=== PATIENT | female | born 1945 | race Caucasian/White ===

== ENCOUNTER 2021-06-15 14:03 | Inpatient (IN) ==
[2021-06-15] MEDS ORDERED: ONDANSETRON 4 MG/2 ML VIAL IV STA (15:11)
[2021-06-15] MEDS ORDERED: SODIUM CHLORIDE 0.9% 1,000 ML IV STA (15:11)
[2021-06-15 17:29] LABS: Basophils % 0.5 % (0.0-0.8); Eosinophils % 0.4 % (0.00-10.9); Hematocrit 35.4 VOL% (35.7-47.0); Hemoglobin 11.3 GM/DL (12.0-16.0); Immature Granulocytes % 0.4 %; Immature Granulocytes Absolute 0.03 #; Lymphocytes # 1.7 10*3/uL (1.4-4.0); Lymphocytes % 20.5 % (21.3-54.2); Mean Corpuscular HGB Conc 31.9 GM/DL (32-36); Mean Corpuscular Volume 88.1 FL (87-102); Monocytes % 8.2 % (1.7-12.7); Platelet Count 370 T/CUMM (130-400); Red Blood Count 4.02 MC/CUMM (3.8-5.5); White Blood Count 8.4 T/CUMM (4-12)
[2021-06-15 17:50] LABS: Albumin 2.7 G/DL (3.4-5.0); Osmolality,Calculated 276.5 MOS/KG (273-304); Potassium 2.7 MMOL/L (3.5-5.1); Total Protein 6.8 G/DL (6.4-8.2)
[2021-06-15] MEDS ORDERED: MAGNESIUM SULF RIDER 2 GM/50 ML PREMIX IV PRN (18:13)
[2021-06-15] MEDS ORDERED: MAGNESIUM SULF RIDER 4 GM/100 ML PREMIX IV PRN (18:13)
[2021-06-15] MEDS ORDERED: PIPERACILLIN/TAZOBACTAM 3,375 MG in SODIUM CHLORIDE 0.9% 100 ML IV STA (18:15)
[2021-06-15] MEDS ORDERED: GLUCAGON 1 MG VIAL IM PRN (18:47)
[2021-06-15] MEDS ORDERED: hydrALAZINE 20 MG/1 ML VIAL IV PRN (18:47)
[2021-06-15] MEDS ORDERED: DEXTROSE 10% 250 ML BAG IV PRN (18:57)
[2021-06-15] MEDS: POTASSIUM CHLORIDE RIDER 10 MEQ/100 ML PREMIX IV PRN ×4 (20:30→23:45)
[2021-06-15] MEDS: ALBUTEROL/IPRATROPIUM 3 ML NEB RESP TX SCH (20:46)
[2021-06-15] MEDS: traZODone 50 MG TABLET PO SCH (22:36)
[2021-06-15] MEDS: QUEtiapine 25 MG TABLET PO SCH (22:36)
[2021-06-16] MEDS: ALBUTEROL/IPRATROPIUM 3 ML NEB RESP TX SCH ×4 (00:09→19:10)
[2021-06-16 04:19] LABS: Basophils # 0.1 10*3/uL (0.0-0.2); Basophils % 0.7 % (0.0-0.8); Eosinophils % 0.4 % (0.00-10.9); Hemoglobin 10.8 GM/DL (12.0-16.0); Immature Granulocytes % 0.4 %; Immature Granulocytes Absolute 0.03 #; Lymphocytes # 1.4 10*3/uL (1.4-4.0); Mean Corpuscular HGB Conc 31.8 GM/DL (32-36); Mean Corpuscular Volume 89.5 FL (87-102); Mean Platelet Volume 9.1 FL (9.6-12.0); Monocytes % 8.1 % (1.7-12.7); Neutrophils % 72.4 % (38.7-73.9); Platelet Count 352 T/CUMM (130-400); Red Cell Distribution Width 16.1 % (9.3-17.3); White Blood Count 7.5 T/CUMM (4-12)
[2021-06-16 04:36] LABS: Calcium 8.9 MG/DL (8.5-10.1); Osmolality,Calculated 272.7 MOS/KG (273-304); Potassium 3.1 MMOL/L (3.5-5.1)
[2021-06-16] MEDS: POTASSIUM CHLORIDE RIDER 10 MEQ/100 ML PREMIX IV PRN ×5 (05:29→11:15)
[2021-06-16] MEDS ORDERED: MIDAZOLAM 10 MG/2 ML VIAL ONE (08:20)
[2021-06-16] MEDS ORDERED: MIDAZOLAM 2 MG/2 ML VIAL IV ONE (08:43)
[2021-06-16] MEDS: cefTRIAXone 2,000 MG in SODIUM CHLORIDE 0.9% 100 ML IV SCH (08:58)
[2021-06-16] MEDS: NICOTINE 21 MG/24 HR PATCH TRANSDERM SCH (09:47)
[2021-06-16] MEDS: methylPREDNISolone SOD SUC 40 MG/1 ML VIAL IV SCH ×2 (09:53→17:11)
[2021-06-16] MEDS: SODIUM CHLORIDE 0.9% 1,000 ML IV SCH (10:40)
[2021-06-16] MEDS: traMADol 50 MG TABLET PO PRN ×2 (17:10→20:58)
[2021-06-16] MEDS: QUEtiapine 25 MG TABLET PO SCH (20:58)
[2021-06-16] MEDS: traZODone 50 MG TABLET PO SCH (20:58)
[2021-06-17] MEDS: methylPREDNISolone SOD SUC 40 MG/1 ML VIAL IV SCH (01:16)
[2021-06-17] MEDS: ALBUTEROL/IPRATROPIUM 3 ML NEB RESP TX SCH ×4 (01:19→19:02)
[2021-06-17] MEDS ORDERED: methylPREDNISolone SOD SUC 40 MG/1 ML VIAL IM ONE (01:30)
[2021-06-17] MEDS: traMADol 50 MG TABLET PO PRN ×3 (04:44→19:45)
[2021-06-17 04:57] LABS: Basophils % 0.2 % (0.0-0.8); Hematocrit 31.4 VOL% (35.7-47.0); Immature Granulocytes % 0.5 %; Immature Granulocytes Absolute 0.03 #; Lymphocytes # 0.6 10*3/uL (1.4-4.0); Lymphocytes % 10.1 % (21.3-54.2); Mean Corpuscular HGB Conc 31.8 GM/DL (32-36); Mean Corpuscular Volume 87.7 FL (87-102); Mean Platelet Volume 8.9 FL (9.6-12.0); Monocytes % 1.8 % (1.7-12.7); Neutrophils % 87.4 % (38.7-73.9); Platelet Count 346 T/CUMM (130-400); Red Blood Count 3.58 MC/CUMM (3.8-5.5); Red Cell Distribution Width 15.8 % (9.3-17.3); White Blood Count 6.1 T/CUMM (4-12)
[2021-06-17 05:11] LABS: Osmolality,Calculated 271.8 MOS/KG (273-304); Potassium 3.7 MMOL/L (3.5-5.1)
[2021-06-17] MEDS: SODIUM CHLORIDE 0.9% 1,000 ML IV SCH (06:28)
[2021-06-17] MEDS ORDERED: cefTRIAXone 2,000 MG in SODIUM CHLORIDE 0.9% 100 ML IM SCH (09:29)
[2021-06-17] MEDS ORDERED: cefTRIAXone 2,000 MG VIAL IM SCH (10:00)
[2021-06-17] MEDS: methylPREDNISolone SOD SUC 40 MG/1 ML VIAL IM SCH ×2 (10:27→17:49)
[2021-06-17] MEDS: NICOTINE 21 MG/24 HR PATCH TRANSDERM SCH (10:32)
[2021-06-17] MEDS: cefTRIAXone 2,000 MG in SODIUM CHLORIDE 0.9% 100 ML IV SCH (10:35)
[2021-06-17] MEDS: QUEtiapine 25 MG TABLET PO SCH (20:17)
[2021-06-17] MEDS: GABAPENTIN 300 MG CAPSULE PO PRN (20:17)
[2021-06-17] MEDS: traZODone 50 MG TABLET PO SCH (20:17)
[2021-06-18] MEDS: ALBUTEROL/IPRATROPIUM 3 ML NEB RESP TX SCH ×4 (00:09→19:32)
[2021-06-18] MEDS: methylPREDNISolone SOD SUC 40 MG/1 ML VIAL IM SCH ×2 (01:51→09:51)
[2021-06-18] MEDS: SODIUM CHLORIDE 0.9% 1,000 ML IV SCH ×3 (01:52→23:09)
[2021-06-18 04:46] LABS: Basophils % 0.1 % (0.0-0.8); Hematocrit 30.8 VOL% (35.7-47.0); Hemoglobin 9.9 GM/DL (12.0-16.0); Immature Granulocytes % 0.6 %; Immature Granulocytes Absolute 0.05 #; Lymphocytes # 0.7 10*3/uL (1.4-4.0); Mean Corpuscular HGB Conc 32.1 GM/DL (32-36); Mean Corpuscular Volume 87.5 FL (87-102); Mean Platelet Volume 8.7 FL (9.6-12.0); Neutrophils % 88.3 % (38.7-73.9); Platelet Count 359 T/CUMM (130-400); Red Blood Count 3.52 MC/CUMM (3.8-5.5); White Blood Count 8.6 T/CUMM (4-12)
[2021-06-18 05:07] LABS: % Iron Saturation 9.5 % (18-50); Ferritin 22.9 ng/mL (8-252)
[2021-06-18 05:25] LABS: Calcium 8.8 MG/DL (8.5-10.1); Osmolality,Calculated 276.5 MOS/KG (273-304); Potassium 3.8 MMOL/L (3.5-5.1)
[2021-06-18] MEDS: traMADol 50 MG TABLET PO PRN ×3 (05:43→20:46)
[2021-06-18] MEDS: NICOTINE 21 MG/24 HR PATCH TRANSDERM SCH ×2 (07:58→09:05)
[2021-06-18] MEDS ORDERED: PANTOPRAZOLE 40 MG VIAL IV SCH (09:00)
[2021-06-18] MEDS: cefTRIAXone 2,000 MG in SODIUM CHLORIDE 0.9% 100 ML IV SCH (09:37)
[2021-06-18] MEDS: PANTOPRAZOLE 40 MG VIAL IV SCH ×2 (09:37→20:47)
[2021-06-18] MEDS: methylPREDNISolone SOD SUC 40 MG/1 ML VIAL IV SCH ×2 (09:37→17:00)
[2021-06-18] MEDS ORDERED: cefTRIAXone 2,000 MG VIAL IV SCH (10:00)
[2021-06-18] MEDS ORDERED: diphenhydrAMINE CAP 25 MG CAPSULE PO ONE (10:00)
[2021-06-18] MEDS ORDERED: diphenhydrAMINE 50 MG/1 ML VIAL IV ONE (13:00)
[2021-06-18] MEDS: traZODone 50 MG TABLET PO SCH (20:44)
[2021-06-18] MEDS: QUEtiapine 25 MG TABLET PO SCH (20:44)
[2021-06-18] MEDS: MIRTAZAPINE 15 MG TABLET PO SCH (20:45)
[2021-06-18] MEDS: GABAPENTIN 300 MG CAPSULE PO PRN (20:46)
[2021-06-19] MEDS: ALBUTEROL/IPRATROPIUM 3 ML NEB RESP TX SCH ×4 (01:45→20:22)
[2021-06-19] MEDS: methylPREDNISolone SOD SUC 40 MG/1 ML VIAL IV SCH ×3 (02:15→17:36)
[2021-06-19 04:23] LABS: Hematocrit 30.5 VOL% (35.7-47.0); Hemoglobin 9.7 GM/DL (12.0-16.0)
[2021-06-19 04:42] LABS: Calcium 8.5 MG/DL (8.5-10.1); Osmolality,Calculated 278.5 MOS/KG (273-304); Potassium 3.5 MMOL/L (3.5-5.1)
[2021-06-19] MEDS: POTASSIUM CHLORIDE RIDER 10 MEQ/100 ML PREMIX IV PRN ×3 (05:31→07:33)
[2021-06-19] MEDS: traMADol 50 MG TABLET PO PRN ×4 (05:33→20:20)
[2021-06-19] MEDS ORDERED: MIDAZOLAM 2 MG/2 ML VIAL ONE (08:47)
[2021-06-19] MEDS: NICOTINE 21 MG/24 HR PATCH TRANSDERM SCH (10:10)
[2021-06-19] MEDS: PANTOPRAZOLE 40 MG VIAL IV SCH ×2 (10:14→20:19)
[2021-06-19] MEDS: cefTRIAXone 2,000 MG in SODIUM CHLORIDE 0.9% 100 ML IV SCH (10:16)
[2021-06-19] MEDS: SODIUM CHLORIDE 0.9% 1,000 ML IV SCH ×2 (10:20→17:54)
[2021-06-19] MEDS: METOCLOPRAMIDE 10 MG/2 ML VIAL IV SCH ×3 (12:08→23:43)
[2021-06-19] MEDS: traZODone 50 MG TABLET PO SCH (20:19)
[2021-06-19] MEDS: MIRTAZAPINE 15 MG TABLET PO SCH (20:20)
[2021-06-19] MEDS ORDERED: ACETAMINOPHEN 325 MG TABLET PO PRN (20:26)
[2021-06-20] MEDS: traMADol 50 MG TABLET PO PRN ×3 (02:17→12:13)
[2021-06-20] MEDS: methylPREDNISolone SOD SUC 40 MG/1 ML VIAL IV SCH ×3 (02:17→19:05)
[2021-06-20] MEDS: SODIUM CHLORIDE 0.9% 1,000 ML IV SCH (05:43)
[2021-06-20] MEDS: METOCLOPRAMIDE 10 MG/2 ML VIAL IV SCH (05:43)
[2021-06-20] MEDS: ALBUTEROL/IPRATROPIUM 3 ML NEB RESP TX SCH ×4 (07:17→19:40)
[2021-06-20] MEDS: METOCLOPRAMIDE 10 MG/10 ML UDCUP PO SCH ×4 (07:52→21:43)
[2021-06-20] MEDS: NICOTINE 21 MG/24 HR PATCH TRANSDERM SCH (08:01)
[2021-06-20] MEDS: PANTOPRAZOLE 40 MG VIAL IV SCH ×2 (08:02→21:43)
[2021-06-20] MEDS: cefTRIAXone 2,000 MG in SODIUM CHLORIDE 0.9% 100 ML IV SCH (09:46)
[2021-06-20] MEDS: GABAPENTIN 300 MG CAPSULE PO PRN ×2 (09:50→16:25)
[2021-06-20] MEDS: MIRTAZAPINE 15 MG TABLET PO SCH (21:37)
[2021-06-20] MEDS: traZODone 50 MG TABLET PO SCH (21:38)
[2021-06-21] MEDS: SODIUM CHLORIDE 0.9% 1,000 ML IV SCH ×2 (00:04→03:12)
[2021-06-21] MEDS: ALBUTEROL/IPRATROPIUM 3 ML NEB RESP TX SCH ×2 (01:12→11:01)
[2021-06-21] MEDS: methylPREDNISolone SOD SUC 40 MG/1 ML VIAL IV SCH ×2 (01:36→10:51)
[2021-06-21 04:47] LABS: Basophils % 0.1 % (0.0-0.8); Hematocrit 35.3 VOL% (35.7-47.0); Hemoglobin 10.8 GM/DL (12.0-16.0); Immature Granulocytes % 0.7 %; Immature Granulocytes Absolute 0.14 #; Lymphocytes # 1.6 10*3/uL (1.4-4.0); Lymphocytes % 7.7 % (21.3-54.2); Mean Corpuscular HGB Conc 30.6 GM/DL (32-36); Mean Corpuscular Volume 82.1 FL (87-102); Mean Platelet Volume 12.5 FL (9.6-12.0); Monocytes % 5.4 % (1.7-12.7); Neutrophils % 86.1 % (38.7-73.9); Platelet Count 162 T/CUMM (130-400); White Blood Count 21.3 T/CUMM (4-12)
[2021-06-21 05:06] LABS: Calcium 8.1 MG/DL (8.5-10.1); Osmolality,Calculated 276.5 MOS/KG (273-304)
[2021-06-21 05:07] LABS: Band Neutrophils 1 % (0-10); Hypochromia 1+; Lymphocytes 8 % (20-55); Microcytosis 1+; Platelet Estimate Adequate; Segmented Neutrophils 89 % (50-85); Total Cells Counted 100
[2021-06-21 06:42] LABS: Basophils % 0.1 % (0.0-0.8); Hemoglobin 10.3 GM/DL (12.0-16.0); Immature Granulocytes % 0.7 %; Immature Granulocytes Absolute 0.09 #; Lymphocytes # 0.7 10*3/uL (1.4-4.0); Lymphocytes % 5.7 % (21.3-54.2); Mean Corpuscular HGB Conc 31.2 GM/DL (32-36); Mean Corpuscular Volume 90.4 FL (87-102); Mean Platelet Volume 8.8 FL (9.6-12.0); Monocytes % 1.8 % (1.7-12.7); Neutrophils % 91.7 % (38.7-73.9); Platelet Count 313 T/CUMM (130-400); Red Blood Count 3.65 MC/CUMM (3.8-5.5); Red Cell Distribution Width 16.7 % (9.3-17.3); White Blood Count 12.6 T/CUMM (4-12)
[2021-06-21] MEDS ORDERED: MEPERIDINE 25 MG/1 ML VIAL IM ONE (07:00)
[2021-06-21] MEDS ORDERED: PROMETHAZINE 25 MG/1 ML VIAL IM ONE (07:00)
[2021-06-21 07:03] LABS: Calcium 8.4 MG/DL (8.5-10.1); Hypochromia 1+; Lymphocytes 7 % (20-55); Microcytosis 1+; Osmolality,Calculated 281.4 MOS/KG (273-304); Platelet Estimate Adequate; Segmented Neutrophils 91 % (50-85); Total Cells Counted 100
[2021-06-21] MEDS ORDERED: LIDOCAINE 2% VISCOUS 100 ML BOTTLE SWISH/SPIT ONE (07:30)
[2021-06-21] MEDS ORDERED: MIDAZOLAM 2 MG/2 ML VIAL IV ONE (07:30)
[2021-06-21] MEDS ORDERED: LIDOCAINE 2% 20 ML VIAL RESP TX ONE (07:30)
[2021-06-21] MEDS ORDERED: LIDOCAINE 1% 20 ML VIAL MISC INJ ONE (07:30)
[2021-06-21 08:10] VITALS: BP 166/133
[2021-06-21] MEDS: METOCLOPRAMIDE 10 MG/10 ML UDCUP PO SCH ×2 (08:15→10:48)
[2021-06-21] MEDS: traMADol 50 MG TABLET PO PRN (10:48)
[2021-06-21] MEDS: NICOTINE 21 MG/24 HR PATCH TRANSDERM SCH (10:51)
[2021-06-21] MEDS: PANTOPRAZOLE 40 MG VIAL IV SCH (10:51)
[2021-06-21] MEDS: cefTRIAXone 2,000 MG in SODIUM CHLORIDE 0.9% 100 ML IV SCH (10:51)
== END 2021-06-21 12:02 | disposition home health service (06) | DRG 180 ==
LOC: N.ED 14:03 → N.EDINP 18:47 → SUATTDRO 18:47 → N.CC 20:51 → N.TELES 06-20 17:44
PROVIDERS: ADMIT Emergency Medicine; ATTEND Internal Medicine
PROC: BRONCHB (2021-06-21 07:35)